=== PATIENT | male | born 1990 | race Caucasian/White ===

== ENCOUNTER 2020-05-30 21:48 | Emergency (ER) | payer SELFPAY ==
--- NOTE | 2020-05-30 22:20 | RAD ---
Exam:Right hand 3 views HISTORY: Thumb swelling, x4 days. Swelling is spreading to the wrist and second digit. COMPARISON: None FINDINGS: Soft tissue swelling involving the first and second digit. No erosive or destructive change s. No radiopaque foreign bodies. No fracture. IMPRESSION: Soft tissue swelling. Correlate for cellulitis.
[2020-05-30] MEDS ORDERED: Ketorolac Tromethamine 30 MG/ML VIAL ONE (23:05)
[2020-05-30] MEDS ORDERED: HYDROcodone/Acetaminophen 5/325 mg Tablet ONE (23:05)
[2020-05-30] MEDS ORDERED: Clindamycin 150 MG CAP ONE (23:07)
== END 2020-05-31 00:04 | disposition home or self-care (01) ==
LOC: ERS 21:48
DX: L08.9 Local infection of the skin and subcutaneous tissue, unspecified (principal); F90.9 Attention-deficit hyperactivity disorder, unspecified type; F17.210 Nicotine dependence, cigarettes, uncomplicated
CPT/HCPCS: J1885

== ENCOUNTER 2020-06-03 18:03 | Inpatient (IN) | payer OTHER, SELFPAY ==
[2020-06-03] MEDS ORDERED: Morphine 4 MG/ML VIAL ONE ×2 (18:41→19:23)
[2020-06-03] MEDS ORDERED: Cefepime 1 GM VIAL ONE (18:42)
[2020-06-03] MEDS ORDERED: Ondansetron PF 4 MG/2 ML Vial ONE (18:42)
[2020-06-03 18:48] LABS: #Basophils 0.1 thou/uL (0.0-0.2); #Eosinphils 0.6 thou/uL (0.0-0.7); #Lymphocytes 1.8 thou/uL (1.20-3.40); #Neutrophils 3.9 thou/uL (1.40-6.50); %Basophils 0.9 % (0.0-1.0); %Eosinophils 7.8 % (0.0-10.0); %Lymphocytes 24.6 % (21.0-51.0); %Neutrophils 52.8 % (42.0-75.0); Hemoglobin 15.6 g/dL (14.0-18.0); Mean Corpuscular HGB CONC 34.1 g/dL (32.0-36.0); Mean Corpuscular Hemoglobin 30.9 pg (27.0-31.0); Mean Corpuscular Volume 90.6 fL (78.0-98.0); Mean Platelet Volume 7.3 fL (7.4-10.4); Platelet Count 284 thou/uL (130-400); RBC Distribution Width 11.7 % (11.5-14.5); Red Blood Cell (RBC) Count 5.04 mill/uL (4.70-6.10); White Blood Cell (WBC) Count 7.4 thou/uL (4.8-10.8)
--- NOTE | 2020-06-03 18:50 | RAD ---
XR Hand Rt 3 View STANDARD History: Cellulitis Comparison: Radiograph May 30, 2020 Findings: Mild soft tissue swelling of the hand. No acute displaced fracture or malalignment. Impression: No acute osseous abnormality.
[2020-06-03 19:07] LABS: ALT (SGPT) 15 U/L (8-55); AST (SGOT) 21 U/L (5-34); Albumin 4.4 g/dL (3.5-5.0); Alkaline Phosphatase 117 U/L (40-110); Anion Gap 12 mmol/L (10-20); BUN (Urea Nitrogen) 14 mg/dL (8.9-20.6); Bilirubin, Total 0.2 mg/dL (0.2-1.2); Calc. Creatinine Clearance 0 mL/min (70-130); Calcium 9.2 mg/dL (7.8-10.44); Carbon Dioxide 25 mmol/L (22-29); Chloride 102 mmol/L (98-107); Estimated GFR-MDRD 90; Globulin 3.1 g/dL (2.4-3.5); Glucose 87 mg/dL (70-105); Potassium 4.4 mmol/L (3.5-5.1); Protein, Total 7.5 g/dL (6.0-8.3); Sodium 135 mmol/L (136-145)
[2020-06-03] MEDS ORDERED: Vancomycin HCl 1.75 GM in Sodium Chloride 0.9% 500 ML IVPB SCH (20:00)
--- NOTE | 2020-06-03 20:18 | PDOC.HHP ---
Hospitalist HPI - History of Present Illness right hand infection History of Present Illness: PCP: None, city call Patient is a 29-year-old male with a history of frequent staph infections. He presents to the ER today for right hand pain and infection. He was seen in the ER 4 days ago for this same infection and the pain started 3 days prior to that with no specific injury or causative event. He has a longstanding history of multiple staph infections which he was required to take Bactrim for daily, he states he has been compliant with this. Patient denies any fever and states that the pain is only in his right thumb and pointer finger and that it goes into his wrist with movement. Patient was prescribed clindamycin 300 mg every 8 hours and tramadol 50 mg for the pain. He states he has been compliant with his medications. ED Course: VITAL SIGNS SatJun 03, 2020 18:04 NORA Miranda Cheryl BP: 140/69, Pulse: 99, Resp: 18, Temp: 97.7 (Oral), Pain: 7, O2 sat: 99 on (Room Air), Time: 06/03/2020 18:04. VITAL SIGNS SatJun 03, 2020 19:30 NORA Elizondo Madison BP: 116/69, Pulse: 76, Resp: 20, Temp: 98.2 (Oral), Pain: 7, O2 sat: 96 on (Room Air), Time: 06/03/2020 19:30. Today in the ER the patient had a hand x-ray, lab work, and medication administration. He was given vancomycin 1800 mg, 2 doses of morphine 4 mg, 1 L normal saline, cefepime 1 g IV, and Zofran [address] Andrea with surgery was also consulted and saw the patient in the ER. Hospitalist ROS - Review of Systems Musculoskeletal: reports: hand pain (Right hand pain and tightness) All other systems reviewed; all pertinent +/- noted in HPI/Subj - Medication Medications: No known drug allergies Current medications: Bactrim 800 mg 3 times a day Hospitalist History - Past Medical History Source: patient Psych: reports: Other (ADHD) Infectious Disease: reports: Other (Frequent staph infections) - Past Surgical History Past Surgical History: reports: Other (Left tib-fib fracture, oleg from hip to knee and knee to ankle) - Social History Smoking Status: Current every day smoker Alcohol: reports: None Drugs: reports: none Living Situation: With Family Hospitalist Results - Labs Result Diagrams: 06/03/20 18:40 06/03/20 18:40 Lab results: WBC 7.4 thou/uL (4.8-10.8) 06/03/20 18:40 Hgb 15.6 g/dL (14.0-18.0) 06/03/20 18:40 Hct 45.7 % (42.0-52.0) 06/03/20 18:40 MCV 90.6 fL (78.0-98.0) 06/03/20 18:40 Plt Count 284 thou/uL (130-400) 06/03/20 18:40 Neutrophils % 52.8 % (42.0-75.0) 06/03/20 18:40 Sodium 135 mmol/L (136-145) L 06/03/20 18:40 Potassium 4.4 mmol/L (3.5-5.1) 06/03/20 18:40 Chloride 102 mmol/L (98-107) 06/03/20 18:40 Carbon Dioxide 25 mmol/L (22-29) 06/03/20 18:40 BUN 14 mg/dL (8.9-20.6) 06/03/20 18:40 Creatinine 0.98 mg/dL (0.7-1.3) 06/03/20 18:40 Glucose 87 mg/dL (70-105) 06/03/20 18:40 Lactic Acid 0.9 mmol/L (0.5-2.2) 06/03/20 18:40 Calcium 9.2 mg/dL (7.8-10.44) 06/03/20 18:40 Total Bilirubin 0.2 mg/dL (0.2-1.2) 06/03/20 18:40 AST 21 U/L (5-34) 06/03/20 18:40 ALT 15 U/L (8-55) 06/03/20 18:40 Alkaline Phosphatase 117 U/L (40-110) H 06/03/20 18:40 Serum Total Protein 7.5 g/dL (6.0-8.3) 06/03/20 18:40 Albumin 4.4 g/dL (3.5-5.0) 06/03/20 18:40 - Radiology Interpretation Other Status: report reviewed by me Additional Comment: XR Hand Rt 3 View STANDARD History: Cellulitis Comparison: Radiograph May 30, 2020 Findings: Mild soft tissue swelling of the hand. No acute displaced fracture or malalignment. Impression: No acute osseous abnormality. Hospitalist H&P A/P - Problem (1) Cellulitis of hand, right Code(s): L03.113 - CELLULITIS OF RIGHT UPPER LIMB Status: Acute (2) Failure of outpatient treatment Code(s): Z78.9 - OTHER SPECIFIED HEALTH STATUS Status: Acute (3) Hyponatremia Code(s): E87.1 - HYPO-OSMOLALITY AND HYPONATREMIA Status: Acute - Plan Plan: Cellulitis of right hand with failed outpatient treatment Orthopedic surgeon has already been consulted and saw patient in the ER, patient may require surgery if no improvement is seen in his hand overnight N.p.o. after midnight Continue IV antibiotics Monitor lab work for signs of infection, currently normal white blood count and normal lactic acid Blood cultures have been sent, pending results Pain management Hyponatremia Monitor lab work in a.m. VTE and GI prophylaxis in place CODE STATUS: Full Surrogate decision maker is his Discussed patient with Dr. Krishnamurthy
[2020-06-03] MEDS ORDERED: Acetaminophen 325 MG TAB PO PRN (21:15)
[2020-06-03 22:23] VITALS: BMI 20.6
[2020-06-03] MEDS ORDERED: HYDROcodone/Acetaminophen 5/325 mg Tablet PO PRN (23:30)
[2020-06-04] MEDS: HYDROcodone/Acetaminophen 5/325 mg Tablet PO PRN ×4 (00:08→21:29)
[2020-06-04] MEDS: Ampicillin/Sulbactam 3 GM in Sodium Chloride 0.9% 100 ML IVPB SCH ×4 (00:09→18:12)
[2020-06-04 05:33] LABS: #Eosinphils 0.6 thou/uL (0.0-0.7); #Lymphocytes 1.5 thou/uL (1.20-3.40); #Monocytes 0.9 thou/uL (0.11-0.59); #Neutrophils 3.3 thou/uL (1.40-6.50); %Basophils 0.7 % (0.0-1.0); %Eosinophils 8.9 % (0.0-10.0); %Lymphocytes 24.1 % (21.0-51.0); %Monocytes 13.6 % (0.0-10.0); %Neutrophils 52.6 % (42.0-75.0); Hemoglobin 14.2 g/dL (14.0-18.0); Mean Corpuscular HGB CONC 33.7 g/dL (32.0-36.0); Mean Corpuscular Volume 91.9 fL (78.0-98.0); Mean Platelet Volume 7.3 fL (7.4-10.4); Platelet Count 245 thou/uL (130-400); RBC Distribution Width 11.6 % (11.5-14.5); White Blood Cell (WBC) Count 6.3 thou/uL (4.8-10.8)
[2020-06-04 05:53] LABS: Anion Gap 14 mmol/L (10-20); BUN (Urea Nitrogen) 15 mg/dL (8.9-20.6); Calc. Creatinine Clearance 123 mL/min (70-130); Calcium 8.8 mg/dL (7.8-10.44); Carbon Dioxide 27 mmol/L (22-29); Chloride 103 mmol/L (98-107); Estimated GFR-MDRD Greater than 90; Glucose 90 mg/dL (70-105); Potassium 4.5 mmol/L (3.5-5.1); Sodium 139 mmol/L (136-145)
[2020-06-04] MEDS ORDERED: FLU VACC QS2020-21(6MOS UP)/PF 60 MCG/0.5 ML SYRINGE IM ONE (09:00)
[2020-06-04] MEDS: Vancomycin HCl 1.75 GM in Sodium Chloride 0.9% 500 ML IVPB SCH ×2 (09:30→21:28)
[2020-06-04] MEDS: Morphine 4 MG/ML VIAL SLOW IVP PRN ×2 (09:32→22:25)
--- NOTE | 2020-06-04 11:55 | CON ---
DATE OF CONSULTATION: 06/04/2020 HISTORY OF PRESENT ILLNESS: Mr. Melton is a 29-year-old left-handed male who presented with pain, swelling, and erythema in the right hand, particularly the thumb. The patient was seen in the emergency room 4 days ago where he had the infection, was started on clindamycin. The patient normally takes Bactrim everyday for multiple staph infections. The patient does not remember any history of trauma or any type of puncture wound to the right thumb or hand. I saw the patient in the emergency room last night and he was very tender to palpation, but was able to move the thumb. Some of the erythema was also on the palmar aspect of the hand going toward the index finger. The patient was admitted and started on IV antibiotics including vancomycin. He states that he is feeling better this morning. The patient has been afebrile since he has been in the hospital. PHYSICAL EXAMINATION: Right hand shows that the erythema, swelling, and tenderness have all decreased in the right thumb. The patient is able to actively flex and extend at the MP and IP joints. There is no significant erythema into the palm of the hand. He has good range of motion of all the other digits. IMPRESSION: Cellulitis of the right thumb showing good response to IV antibiotics. I do not see any indication of flexor tenosynovitis or abscess formation. PLAN: The patient should continue with IV antibiotics. At this point, surgical intervention is not indicated. I recommend he continue with IV antibiotics and see if he does respond well with that. Job ID: [id number]
[2020-06-04 15:25] LABS: SARS-CoV-2 MS2 Positive; SARS-CoV-2 N Gene Negative; SARS-CoV-2 S Gene Negative; SARS-CoV-2 by NAA Not Detected (NotDetected); SARS-CoV-2 orf1ab Negative
[2020-06-04] MEDS ORDERED: cefTRIAXone\\ROCEPHIN 1 GM in Sodium Chloride 0.9% 100 ML IVPB SCH (17:00)
--- NOTE | 2020-06-04 18:09 | PDOC.HOSPP ---
- Subjective Encounter Date: 06/04/20 Encounter Time: 14:00 Subjective: The patient reports improvement in his swelling of his thumb and is able to move it more, but it is still moderately painful. He denies jamming his thumb against any thing that he recalls. He states his daughter had a staph infection in her diaper, but washed his hands after cleaning her. He denies any cuts in his thumb. 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 He states that he was taking it prior to admission, is supposed to take it three times daily but is not compliant with his dosing - Objective Vital Signs & Weight: Vital Signs (12 hours) Temp Pulse Resp BP BP Pulse Ox 06/04/20 15:12 98 F 64 18 102/62 99 06/04/20 10:44 97.8 F 74 18 100/59 L 97 06/04/20 07:23 98 F 68 16 93/53 L 98 Weight Weight 165 lb I&O: 06/03/20 06/04/20 06/05/20 06:59 06:59 06:59 Intake Total 700 Balance 700 Result Diagrams: 06/04/20 05:05 06/04/20 05:05 Hospitalist ROS - Review of Systems Constitutional: denies: fever, chills - Medication Medications: Active Medications Generic Name Dose Route Start Last Admin Trade Name Freq PRN Reason Stop Dose Admin Hydrocodone Bitart/Acetaminophen 2 tab 06/03/20 23:30 06/04/20 15:58 Hydrocodone/Acetaminophen 5/325 Mg Tablet PO 2 tab Q4H PRN Administration Severe Pain (7-10) Vancomycin HCl 1.75 gm/ Sodium 500 mls @ 250 mls/hr 06/04/20 09:00 06/04/20 09:30 Chloride IVPB 500 mls Q12HR TAVO Administration Ampicillin Sodium/Sulbactam 100 mls @ 200 mls/hr 06/03/20 23:59 06/04/20 14:32 Sodium 3 gm/ Sodium Chloride IVPB 100 mls Q6HR TAVO Administration Morphine Sulfate 4 mg 06/03/20 21:15 06/04/20 09:32 Morphine 4 Mg/Ml Vial SLOW IVP 4 mg Q4H PRN Administration Moderate to Severe Pain (6-10) Pantoprazole Sodium 40 mg 06/04/20 09:00 06/04/20 09:29 Pantoprazole 40 Mg Tab PO Not Given DAILY TAVO - Exam General Appearance: NAD, awake alert Eye: PERRL, anicteric sclera ENT: normocephalic atraumatic, no oropharyngeal lesions Neck: no JVD Heart: RRR, no murmur, no gallops, no rubs Respiratory: CTAB, no wheezes, no rales, no ronchi Gastrointestinal: soft, non-tender, non-distended, normal bowel sounds Extremities: 2+ LE edema Extremities - other findings: right thumb with swelling on DIP and PIP joint. Tenderness to palpation. Skin - other findings: no erythema noed Musculoskeletal: no muscle wasting Musculoskeletal - other findings: cannot make fist or touch thumb to pinky Psychiatric: normal behavior, A&O x 3, oriented to person Hosp A/P - Plan This is a 29 year old male who presented with right thumb cellulitis Right thumb cellulitis - blood cultures are negative. Continue IV vancomycin and unasyn. No fevers or white blood cell count evident - ortho saw the patient and recommended no surgical intervention
[2020-06-05] MEDS: Ampicillin/Sulbactam 3 GM in Sodium Chloride 0.9% 100 ML IVPB SCH ×2 (00:12→06:09)
[2020-06-05] MEDS: Morphine 4 MG/ML VIAL SLOW IVP PRN ×2 (03:39→08:49)
[2020-06-05 05:21] LABS: #Basophils 0.1 thou/uL (0.0-0.2); #Eosinphils 0.5 thou/uL (0.0-0.7); #Lymphocytes 1.8 thou/uL (1.20-3.40); #Monocytes 0.8 thou/uL (0.11-0.59); #Neutrophils 3.7 thou/uL (1.40-6.50); %Basophils 1.2 % (0.0-1.0); %Eosinophils 7.7 % (0.0-10.0); %Lymphocytes 25.4 % (21.0-51.0); %Neutrophils 53.7 % (42.0-75.0); Hemoglobin 13.7 g/dL (14.0-18.0); Mean Corpuscular HGB CONC 32.8 g/dL (32.0-36.0); Mean Corpuscular Hemoglobin 30.3 pg (27.0-31.0); Mean Corpuscular Volume 92.4 fL (78.0-98.0); Mean Platelet Volume 7.5 fL (7.4-10.4); Platelet Count 250 thou/uL (130-400); RBC Distribution Width 11.5 % (11.5-14.5); Red Blood Cell (RBC) Count 4.51 mill/uL (4.70-6.10)
[2020-06-05 05:40] LABS: Anion Gap 10 mmol/L (10-20); BUN (Urea Nitrogen) 14 mg/dL (8.9-20.6); Calc. Creatinine Clearance 138 mL/min (70-130); Calcium 8.7 mg/dL (7.8-10.44); Carbon Dioxide 29 mmol/L (22-29); Chloride 101 mmol/L (98-107); Estimated GFR-MDRD Greater than 90; Glucose 90 mg/dL (70-105); Potassium 4.4 mmol/L (3.5-5.1); Sodium 136 mmol/L (136-145)
[2020-06-05] MEDS: HYDROcodone/Acetaminophen 5/325 mg Tablet PO PRN (06:03)
[2020-06-05 07:06] VITALS: BP 110/66; TEMP 98.3
[2020-06-05] MEDS: Vancomycin HCl 1.75 GM in Sodium Chloride 0.9% 500 ML IVPB SCH (08:47)
--- NOTE | 2020-06-06 03:00 | DIS ---
DATE OF ADMISSION: 06/03/2020 DATE OF DISCHARGE: 06/05/2020 DISCHARGE DISPOSITION: The patient left against medical advice prior to being seen on the day of discharge. DISCHARGE DIAGNOSES: 1. Acute cellulitis of the right thumb. 2. Anemia. 3. Elevated alkaline phosphatase. CONSULTATIONS: Orthopedics with Dr. Roger Gomez. PROCEDURES: None. BRIEF HISTORY OF PRESENT ILLNESS: This is a 29-year-old male with no significant past medical history, presented to the emergency room with a right hand pain infection. He stated that he has had multiple staph infections and he takes Bactrim daily for chronic infections in his legs, for which he has had over 31 surgeries. 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 He stated that he did not jam his finger against anything, but was unable to move his right thumb and pointer finger. He had taken clindamycin prior to arrival to the ER. He was admitted to the hospital for failed outpatient treatment. HOSPITAL COURSE: Right thumb cellulitis: The patient had hand x-ray, which showed mild soft tissue swelling of the hand. He was started on IV vancomycin and Unasyn while in the hospital. His thumb tenderness and erythema significantly improved. He was seen by Dr. Gomez, who recommended no surgical intervention. He was continued on IV antibiotics on 06/04. On 06/05, the patient left AMA prior to me seeing the patient. The patient did not answer his cellphone when contacted and his significant other did not know his whereabouts. Per nursing staff, police was called to do wellness check. DISCHARGE PHYSICAL EXAMINATION: ' VITAL SIGNS: At 7 a.m.; temperature 98.3, heart rate 69, respiratory rate 14, O2 saturation 97% on room air, and blood pressure 110/66. Physical exam, I was unable to examine the patient since he left prior to discharge. PERTINENT LABORATORY DATA: CBC 06/05: Shows mild anemia, hemoglobin 13.7 and hematocrit 41.7. BMP 06/05: Normal. LFTs 06/03: Elevated alkaline phosphatase 117. COVID PCR 06/03: Negative. PERTINENT IMAGING: Hand x-ray 05/28: Shows no acute osseous abnormality. DISCHARGE CONDITION: Stable. ACTIVITY: As tolerated. DIET: Regular diet. DISPOSITION: Patient left AMA. DISCHARGE MEDICATIONS: Unable to prescribe since the patient left AMA. DISCHARGE INSTRUCTIONS: The patient to follow up with his PCP in a week and going back to the emergency room if he has recurrent swelling or erythema of his thumb. Job ID: [id number] MTDD
--- NOTE | 2020-06-06 17:36 | EKG ---
Test Reason : Blood Pressure : / mmHG Vent. Rate : 073 BPM Atrial Rate : 073 BPM P-R Int : 132 ms QRS Dur : 106 ms QT Int : 370 ms P-R-T Axes : 064 087 058 degrees QTc Int : 407 ms Normal sinus rhythm Normal ECG No previous ECGs available Confirmed by DR. Kendra MANTILLA ([id number]) on 06/06/2020 5:36:27 PM Referred By: RAYMOND Confirmed By:DR. Kendra MANTILLA
== END 2020-06-05 12:19 | disposition left against medical advice (07) | DRG 603 ==
LOC: ERS 18:03 → SJJU 20:13
PROVIDERS: ADMIT Internal Medicine; ATTEND Internal Medicine
DX: L03.011 Cellulitis of right finger (principal); E87.1 Hypo-osmolality and hyponatremia; Z20.828 Contact with and (suspected) exposure to other viral communicable diseases; D64.9 Anemia, unspecified; R79.89 Other specified abnormal findings of blood chemistry; F90.9 Attention-deficit hyperactivity disorder, unspecified type; F17.210 Nicotine dependence, cigarettes, uncomplicated; Z79.899 Other long term (current) drug therapy
CPT/HCPCS: 36415; 80048; 80053; 83605; 85025; 87040; 87635; 93005; 93010; 96365; 96367; 96375; 96376; J0295; J0692; J0696; J2270; J2405; J3370; J3490; J7030; U0003

== ENCOUNTER 2020-06-05 16:41 | Emergency (ER) | payer SELFPAY | END 2020-06-05 17:21 | disposition left against medical advice (07) | LOC: ERS 16:41 | DX: Z53.21 Procedure and treatment not carried out due to patient leaving prior to being seen by health care provider (principal) ==

== ENCOUNTER 2021-10-04 19:50 | Emergency (ER) | payer SELFPAY ==
[2021-10-04 20:50] LABS: #Eosinphils 0.1 thou/uL (0.0-0.7); #Lymphocytes 1.1 thou/uL (1.20-3.40); #Monocytes 1.4 thou/uL (0.11-0.59); %Basophils 0.4 % (0.0-1.0); %Eosinophils 0.5 % (0.0-10.0); %Lymphocytes 9.1 % (21.0-51.0); %Monocytes 12.3 % (0.0-10.0); %Neutrophils 77.7 % (42.0-75.0); Hemoglobin 13.2 g/dL (14.0-18.0); Mean Corpuscular HGB CONC 33.3 g/dL (32.0-36.0); Mean Corpuscular Hemoglobin 30.2 pg (27.0-31.0); Mean Corpuscular Volume 90.7 fL (78.0-98.0); Mean Platelet Volume 6.3 fL (7.4-10.4); Platelet Count 304 thou/uL (130-400); RBC Distribution Width 11.7 % (11.5-14.5); Red Blood Cell (RBC) Count 4.36 mill/uL (4.70-6.10); White Blood Cell (WBC) Count 11.6 thou/uL (4.8-10.8)
[2021-10-04 21:12] LABS: ALT (SGPT) 30 U/L (8-55); AST (SGOT) 24 U/L (5-34); Albumin 3.8 g/dL (3.5-5.0); Alkaline Phosphatase 113 U/L (40-110); Anion Gap 12 mmol/L (10-20); BUN (Urea Nitrogen) 12 mg/dL (8.9-20.6); Bilirubin, Total 0.3 mg/dL (0.2-1.2); Calc. Creatinine Clearance 0 mL/min (70-130); Calcium 8.9 mg/dL (7.8-10.44); Carbon Dioxide 26 mmol/L (22-29); Chloride 99 mmol/L (98-107); Globulin 3.5 g/dL (2.4-3.5); Glucose 126 mg/dL (70-105); Protein, Total 7.3 g/dL (6.0-8.3); Sodium 133 mmol/L (136-145)
[2021-10-04] MEDS ORDERED: Morphine 4 MG/ML VIAL ONE (22:09)
== END 2021-10-04 23:45 | disposition home or self-care (01) ==
LOC: ERS 19:50
DX: L03.116 Cellulitis of left lower limb (principal); F17.210 Nicotine dependence, cigarettes, uncomplicated
CPT/HCPCS: 36415; 80053; 83605; 85025; 87040; 93005; 96374; J2270

== ENCOUNTER 2022-03-02 00:20 | Observation (INO) | payer SELFPAY ==
[2022-03-02] MEDS ORDERED: Lidocaine 1% PF 5 ML VIAL ONE ×2 (00:28→06:09)
[2022-03-02] MEDS ORDERED: Bupivacaine 0.25% 10 ML VIAL ONE (00:30)
[2022-03-02] MEDS ORDERED: Ondansetron PF 4 MG/2 ML Vial ONE ×2 (02:14→06:09)
[2022-03-02] MEDS ORDERED: Boostrix 0.5 ML (Tdap) VIAL ONE (02:14)
[2022-03-02] MEDS ORDERED: Morphine 4 MG/ML VIAL ONE (02:14)
[2022-03-02 02:29] LABS: #Eosinphils 0.1 thou/uL (0.0-0.7); #Lymphocytes 1.2 thou/uL (1.20-3.40); #Neutrophils 5.6 thou/uL (1.40-6.50); %Basophils 0.4 % (0.0-1.0); %Eosinophils 1.7 % (0.0-10.0); %Lymphocytes 14.6 % (21.0-51.0); %Monocytes 12.4 % (0.0-10.0); %Neutrophils 70.8 % (42.0-75.0); Hemoglobin 12.3 g/dL (14.0-18.0); Mean Corpuscular HGB CONC 32.4 g/dL (32.0-36.0); Mean Corpuscular Hemoglobin 29.6 pg (27.0-31.0); Mean Corpuscular Volume 91.5 fL (78.0-98.0); Mean Platelet Volume 6.7 fL (7.4-10.4); Platelet Count 307 thou/uL (130-400); RBC Distribution Width 13.2 % (11.5-14.5); Red Blood Cell (RBC) Count 4.15 mill/uL (4.70-6.10); White Blood Cell (WBC) Count 7.9 thou/uL (4.8-10.8)
[2022-03-02 02:48] LABS: Anion Gap 12 mmol/L (10-20); BUN (Urea Nitrogen) 15 mg/dL (8.9-20.6); Calc. Creatinine Clearance 0 mL/min (70-130); Carbon Dioxide 28 mmol/L (22-29); Chloride 104 mmol/L (98-107); Potassium 3.3 mmol/L (3.5-5.1); Sodium 141 mmol/L (136-145)
[2022-03-02 02:49] LABS: ALT (SGPT) 14 U/L (8-55); AST (SGOT) 13 U/L (5-34); Albumin 3.9 g/dL (3.5-5.0); Alkaline Phosphatase 120 U/L (40-110); Bilirubin, Total Less than 0.2 mg/dL (0.2-1.2); Calcium 9.2 mg/dL (7.8-10.44); Estimated GFR 117; Globulin 3.3 g/dL (2.4-3.5); Glucose 116 mg/dL (70-105); Protein, Total 7.2 g/dL (6.0-8.3)
[2022-03-02] MEDS ORDERED: Neomycin-Polymyxin 1 ML AMP ONE (04:49)
[2022-03-02] MEDS ORDERED: Bupivacaine PF 0.5% 30 ML VIAL ONE (04:49)
[2022-03-02] MEDS ORDERED: Bacitracin Zinc Ointment 30 gm TUBE ONE ×2 (04:49→06:39)
[2022-03-02] MEDS ORDERED: Thrombin 5000 UNITS/5 ML VIAL ONE (04:49)
[2022-03-02] MEDS ORDERED: Bupivacaine 0.25% HCL 30 ML VIAL ONE (04:49)
[2022-03-02 05:37] LABS: SARS-CoV-2 NAA Rapid Test Not Detected (NotDetected)
[2022-03-02] MEDS ORDERED: CEFAZOLIN 1 GM VIAL ONE (05:48)
[2022-03-02] MEDS ORDERED: fentaNYL Citrate/PF 100 MCG/2 ML SYRINGE ONE (05:54)
[2022-03-02] MEDS ORDERED: Midazolam HCl 2 mg/2 ml Vial ONE (05:54)
[2022-03-02] MEDS ORDERED: Glycopyrrolate 0.2 MG/ML 5 ML SYRINGE ONE (06:09)
[2022-03-02] MEDS ORDERED: Succinylcholine 200 MG/10 ml SYRINGE FS ONE (06:09)
[2022-03-02] MEDS ORDERED: Dexamethasone 20 MG/5 ML VIAL ONE (06:09)
[2022-03-02] MEDS ORDERED: PROPOFOL 200 MG/20 ML VIAL ONE (06:09)
[2022-03-02] MEDS ORDERED: Mineral Oil Sterile 10 ML VIAL ONE (06:39)
[2022-03-02] MEDS ORDERED: Promethazine HCl 25 MG/ML VIAL IVPB PRN (07:58)
[2022-03-02] MEDS ORDERED: Promethazine HCl 25 MG/ML VIAL IM PRN ×2 (07:58→08:22)
[2022-03-02] MEDS ORDERED: Ondansetron HCl/PF 4 MG/2 ML Vial IVP PRN (07:58)
[2022-03-02] MEDS ORDERED: Ketorolac Tromethamine 30 MG/ML VIAL ONE (08:22)
[2022-03-02] MEDS ORDERED: Fentanyl 100 MCG/2 ML VIAL SLOW IVP PRN (08:22)
[2022-03-02] MEDS ORDERED: Ondansetron PF 4 MG/2 ML Vial IVP PRN (08:22)
[2022-03-02] MEDS ORDERED: Morphine 4 MG/ML VIAL SLOW IVP PRN (08:22)
[2022-03-02] MEDS ORDERED: Acetaminophen 325 MG TAB PO PRN (08:22)
[2022-03-02] MEDS ORDERED: traMADol HCl 50 MG TAB PO PRN (08:22)
[2022-03-02] MEDS ORDERED: Milk Of Magnesia 30 ML UDCUP PO PRN (08:22)
[2022-03-02] MEDS ORDERED: TETANUS AND DIPHTHERIA TOX/PF 0.5 ML DISP.SYRIN IM SCH (08:30)
[2022-03-02] MEDS ORDERED: Fentanyl 100 MCG/2 ML VIAL ONE (08:40)
[2022-03-02] MEDS: Aspirin 81 mg Enteric Coated Tablet PO SCH ×2 (09:00→20:20)
[2022-03-02] MEDS: Ketorolac Tromethamine 30 MG/ML VIAL IVP PRN (17:29)
[2022-03-02] MEDS: HYDROcodone/Acetaminophen 5/325 mg Tablet PO PRN ×2 (17:30→21:05)
[2022-03-02] MEDS ORDERED: Vancomycin 1.5 GRAM/300 ML BAG 1.5 GM in Premix Bag 1 BAG IVPB SCH (22:15)
[2022-03-03] MEDS: HYDROcodone/Acetaminophen 5/325 mg Tablet PO PRN (02:06)
[2022-03-03] MEDS: Ketorolac Tromethamine 30 MG/ML VIAL IVP PRN (02:25)
[2022-03-03] MEDS: Vancomycin 1 GM in Premix Bag 1 BAG IVPB SCH ×2 (06:19→15:44)
[2022-03-03] MEDS: Aspirin 81 mg Enteric Coated Tablet PO SCH (08:42)
[2022-03-03] MEDS ORDERED: Acetaminophen 325 MG TAB PO PRN (14:46)
[2022-03-03] MEDS ORDERED: Fentanyl 100 MCG/2 ML VIAL SLOW IVP PRN (14:47)
[2022-03-03] MEDS ORDERED: Ketorolac Tromethamine 30 MG/ML VIAL IVP PRN (14:47)
[2022-03-03] MEDS ORDERED: HYDROcodone/Acetaminophen 5/325 mg Tablet PO PRN (14:47)
[2022-03-03] MEDS ORDERED: Milk Of Magnesia 30 ML UDCUP PO PRN (14:48)
[2022-03-03] MEDS ORDERED: Morphine 4 MG/ML VIAL SLOW IVP PRN (14:48)
[2022-03-03] MEDS ORDERED: Ondansetron PF 4 MG/2 ML Vial IVP PRN (14:48)
[2022-03-03] MEDS ORDERED: traMADol HCl 50 MG TAB PO PRN (14:49)
[2022-03-03] MEDS ORDERED: Promethazine HCl 25 MG/ML VIAL IM PRN (14:49)
[2022-03-03 15:59] VITALS: BP 112/68; TEMP 97.9
[2022-03-03] MEDS ORDERED: Aspirin 81 mg Enteric Coated Tablet PO SCH (21:00)
[2022-03-03] MEDS ORDERED: Vancomycin 1 GM in Premix Bag 1 BAG IVPB SCH (22:00)
[2022-03-03] MEDS ORDERED: CEFAZOLIN 2 GM VIAL IVPB SCH (22:00)
[2022-03-03] MEDS ORDERED: CEFAZOLIN 1 GM in Sodium Chloride 0.9% 100 ML IVPB SCH (22:00)
== END 2022-03-03 17:49 | disposition home or self-care (01) ==
LOC: ERS 00:20 → SURG A 08:02 → UNDODISOB 03-03 13:52
PROVIDERS: ADMIT Orthopaedic Surgery Hand Surgery; ATTEND Orthopaedic Surgery Hand Surgery
PROC: 0HDQXZZ Extraction of Finger Nail, External Approach (ICD-10-PCS; principal; 2022-03-02)
PROC: 0HQQXZZ Repair Finger Nail, External Approach (ICD-10-PCS; 2022-03-02)
PROC: 0HRGX73 Replacement of Left Hand Skin with Autologous Tissue Substitute, Full Thickness, External Approach (ICD-10-PCS; 2022-03-02)
PROC: 0PBV0ZZ Excision of Left Finger Phalanx, Open Approach (ICD-10-PCS; 2022-03-02)
PROC: 0PBV0ZZ Excision of Left Finger Phalanx, Open Approach (ICD-10-PCS; 2022-03-02)
DX: S68.611A Complete traumatic transphalangeal amputation of left index finger, initial encounter (principal); S68.613A Complete traumatic transphalangeal amputation of left middle finger, initial encounter; F17.210 Nicotine dependence, cigarettes, uncomplicated; Z79.2 Long term (current) use of antibiotics; Z20.822 Contact with and (suspected) exposure to COVID-19; W24.1XXA Contact with transmission devices, not elsewhere classified, initial encounter
CPT/HCPCS: 36415; 80053; 85025; 90471; 90715; 96374; 96375; 96376; G0378; J0690; J1100; J1885; J2250; J2270; J2405; J2550; J2704; J2710; J3010; J3370; S0020; U0002

== ENCOUNTER 2022-07-21 11:43 | Inpatient (IN) | payer SELFPAY ==
[2022-07-21] MEDS ORDERED: Morphine 4 MG/ML VIAL ONE ×2 (12:15→13:10)
[2022-07-21 12:20] LABS: #Basophils 0.1 thou/uL (0.0-0.2); #Eosinphils 0.2 thou/uL (0.0-0.7); #Lymphocytes 1.3 thou/uL (1.20-3.40); #Monocytes 1.3 thou/uL (0.11-0.59); %Basophils 0.5 % (0.0-1.0); %Eosinophils 2.1 % (0.0-10.0); %Lymphocytes 12.7 % (21.0-51.0); %Monocytes 12.8 % (0.0-10.0); %Neutrophils 71.9 % (42.0-75.0); Hemoglobin 13.1 g/dL (14.0-18.0); Mean Corpuscular Hemoglobin 29.7 pg (27.0-31.0); Mean Corpuscular Volume 92.7 fl (78.0-98.0); Mean Platelet Volume 7.1 fL (7.4-10.4); Platelet Count 265 10x3/uL (130-400); RBC Distribution Width 12.6 % (11.5-14.5); Red Blood Cell (RBC) Count 4.42 mill/uL (4.70-6.10); White Blood Cell (WBC) Count 9.8 10x3/uL (4.8-10.8)
[2022-07-21 12:41] LABS: ALT (SGPT) 20 U/L (8-55); AST (SGOT) 18 U/L (5-34); Albumin 4.2 g/dL (3.5-5.0); Alkaline Phosphatase 121 U/L (40-110); Anion Gap 11 mmol/L (10-20); BUN (Urea Nitrogen) 21 mg/dL (8.9-20.6); Bilirubin, Total 0.5 mg/dL (0.2-1.2); Calc. Creatinine Clearance 0 mL/min (70-130); Carbon Dioxide 28 mmol/L (22-29); Chloride 103 mmol/L (98-107); Estimated GFR 110; Globulin 3.3 g/dL (2.4-3.5); Glucose 87 mg/dL (70-105); Potassium 3.8 mmol/L (3.5-5.1); Protein, Total 7.5 g/dL (6.0-8.3); Sodium 138 mmol/L (136-145)
[2022-07-21] MEDS ORDERED: Cefepime 2 GM VIAL ONE (14:02)
[2022-07-21] MEDS ORDERED: Vancomycin 1 GM/200 ML (FROZEN) BAG ONE (14:02)
[2022-07-21] MEDS ORDERED: Ondansetron ODT 4 MG TAB PO PRN (14:24)
[2022-07-21] MEDS ORDERED: Senokot S 8.6-50 MG TAB PO PRN (14:24)
[2022-07-21] MEDS: Sodium Chloride 0.9% 1,000 ML IV SCH (15:39)
[2022-07-21] MEDS: Morphine 4 MG/ML VIAL SLOW IVP PRN ×2 (15:44→20:13)
[2022-07-21 15:50] VITALS: BMI 21.2
[2022-07-21] MEDS: Nicotine 14 MG PATCH TD SCH (16:11)
[2022-07-21] MEDS ORDERED: Vancomycin HCl 500 MG in Sodium Chloride 0.9% 100 ML IVPB SCH (16:15)
[2022-07-21] MEDS ORDERED: Cefepime 1 GM in Sodium Chloride 0.9% 100 ML IVPB SCH (21:00)
[2022-07-21] MEDS: Famotidine 20 MG TAB PO SCH (21:15)
[2022-07-21] MEDS: Vancomycin 1 GM in Premix Bag 1 BAG IVPB SCH (21:18)
[2022-07-21] MEDS ORDERED: Morphine 4 MG/ML VIAL SLOW IVP SCH (22:45)
[2022-07-22] MEDS: Morphine 4 MG/ML VIAL SLOW IVP PRN (00:55)
[2022-07-22] MEDS: Sodium Chloride 0.9% 1,000 ML IV SCH ×2 (00:56→12:31)
[2022-07-22] MEDS: Cefepime 2 GM in Sodium Chloride 0.9% 100 ML IVPB SCH ×2 (02:50→14:03)
[2022-07-22] MEDS: HYDROcodone/Acetaminophen 10/325 mg Tablet PO PRN ×3 (03:33→21:37)
[2022-07-22] MEDS: Acetaminophen 325 MG TAB PO PRN ×2 (03:34→17:01)
[2022-07-22] MEDS: Vancomycin 1 GM in Premix Bag 1 BAG IVPB SCH (05:47)
[2022-07-22 07:56] LABS: #Basophils 0.1 thou/uL (0.0-0.2); #Eosinphils 0.1 thou/uL (0.0-0.7); #Lymphocytes 1.2 thou/uL (1.20-3.40); #Monocytes 1.7 thou/uL (0.11-0.59); #Neutrophils 8.5 thou/uL (1.40-6.50); %Basophils 0.5 % (0.0-1.0); %Eosinophils 0.5 % (0.0-10.0); %Lymphocytes 10.3 % (21.0-51.0); %Monocytes 14.7 % (0.0-10.0); Hemoglobin 12.9 g/dL (14.0-18.0); Mean Corpuscular HGB CONC 31.3 g/dL (32.0-36.0); Mean Corpuscular Hemoglobin 29.4 pg (27.0-31.0); Mean Platelet Volume 7.2 fL (7.4-10.4); Platelet Count 224 10x3/uL (130-400); RBC Distribution Width 12.2 % (11.5-14.5); Red Blood Cell (RBC) Count 4.39 mill/uL (4.70-6.10); White Blood Cell (WBC) Count 11.5 10x3/uL (4.8-10.8)
[2022-07-22 08:18] LABS: Anion Gap 14 mmol/L (10-20); BUN (Urea Nitrogen) 11 mg/dL (8.9-20.6); Calc. Creatinine Clearance 163 mL/min (70-130); Calcium 8.7 mg/dL (7.8-10.44); Carbon Dioxide 22 mmol/L (22-29); Chloride 100 mmol/L (98-107); Estimated GFR 126; Glucose 82 mg/dL (70-105); Potassium 3.7 mmol/L (3.5-5.1); Sodium 132 mmol/L (136-145)
[2022-07-22] MEDS ORDERED: FLU VACC QS2022-23(6MOS UP)/PF 60 MCG/0.5 ML SYRINGE IM ONE (09:00)
[2022-07-22] MEDS: Famotidine 20 MG TAB PO SCH ×2 (09:19→21:23)
[2022-07-22 13:35] LABS: Vancomycin, Trough 9.4 ug/mL
[2022-07-22] MEDS: Vancomycin 1.5 GRAM/300 ML BAG 1.5 GM in Premix Bag 1 BAG IVPB SCH ×2 (14:03→21:21)
[2022-07-22] MEDS: metroNIDAZOLE 500 MG in Premix Bag 1 BAG IVPB SCH ×2 (15:12→22:12)
[2022-07-22] MEDS: Nicotine 14 MG PATCH TD SCH (15:15)
[2022-07-23] MEDS: Cefepime 2 GM in Sodium Chloride 0.9% 100 ML IVPB SCH (01:17)
[2022-07-23] MEDS: HYDROcodone/Acetaminophen 10/325 mg Tablet PO PRN ×5 (01:59→23:14)
[2022-07-23] MEDS: Vancomycin 1.5 GRAM/300 ML BAG 1.5 GM in Premix Bag 1 BAG IVPB SCH ×3 (05:48→21:01)
[2022-07-23] MEDS: metroNIDAZOLE 500 MG in Premix Bag 1 BAG IVPB SCH (05:48)
[2022-07-23] MEDS: Acetaminophen 325 MG TAB PO PRN (05:58)
[2022-07-23 06:57] LABS: Hemoglobin 12.1 g/dL (14.0-18.0); Mean Corpuscular HGB CONC 32.4 g/dL (32.0-36.0); Mean Corpuscular Hemoglobin 29.7 pg (27.0-31.0); Mean Corpuscular Volume 91.7 fl (78.0-98.0); Mean Platelet Volume 6.9 fL (7.4-10.4); Platelet Count 212 10x3/uL (130-400); Red Blood Cell (RBC) Count 4.08 mill/uL (4.70-6.10)
[2022-07-23 07:29] LABS: Anion Gap 10 mmol/L (10-20); BUN (Urea Nitrogen) 9 mg/dL (8.9-20.6); Calc. Creatinine Clearance 152 mL/min (70-130); Carbon Dioxide 26 mmol/L (22-29); Chloride 100 mmol/L (98-107); Estimated GFR 123; Glucose 137 mg/dL (70-105); Potassium 3.5 mmol/L (3.5-5.1); Sodium 132 mmol/L (136-145)
[2022-07-23 08:13] LABS: Band 2 % (5-11); Eosinophils 1 % (0-10); Lymphocytes 15 % (21-51); MDiff Complete? YES; Monocytes 10 % (0-10); Neutrophil 70 % (42-75); Platelet Morphology Comment Appears Adequate; Polychromasia SLIGHT = 2-3 cells (100X) (0-2/hpf); Reactive Lymphocytes 2 % (0-10)
[2022-07-23] MEDS: Famotidine 20 MG TAB PO SCH ×2 (11:06→21:01)
[2022-07-23] MEDS: Enoxaparin Sodium 40 MG/0.4 ML SYRINGE SC SCH (11:09)
[2022-07-23 13:32] LABS: Vancomycin, Trough 15.4 ug/mL
[2022-07-23] MEDS: Nicotine 14 MG PATCH TD SCH (14:07)
[2022-07-23] MEDS: Morphine 4 MG/ML VIAL SLOW IVP PRN (21:09)
[2022-07-24 00:56] LABS: SARS-CoV-2 NAA Rapid Test Not Detected (NotDetected)
[2022-07-24] MEDS: Acetaminophen 325 MG TAB PO PRN (01:35)
[2022-07-24] MEDS: HYDROcodone/Acetaminophen 10/325 mg Tablet PO PRN ×3 (03:02→21:01)
[2022-07-24] MEDS: Morphine 4 MG/ML VIAL SLOW IVP PRN ×3 (04:47→22:18)
[2022-07-24] MEDS: Vancomycin 1.5 GRAM/300 ML BAG 1.5 GM in Premix Bag 1 BAG IVPB SCH ×2 (04:59→16:32)
[2022-07-24 07:25] LABS: Hemoglobin 11.9 g/dL (14.0-18.0); Mean Corpuscular HGB CONC 32.5 g/dL (32.0-36.0); Mean Corpuscular Hemoglobin 30.4 pg (27.0-31.0); Mean Corpuscular Volume 93.5 fl (78.0-98.0); Mean Platelet Volume 7.1 fL (7.4-10.4); Platelet Count 205 10x3/uL (130-400); RBC Distribution Width 12.2 % (11.5-14.5); Red Blood Cell (RBC) Count 3.92 mill/uL (4.70-6.10); White Blood Cell (WBC) Count 6.8 10x3/uL (4.8-10.8)
[2022-07-24 07:48] LABS: Anion Gap 13 mmol/L (10-20); BUN (Urea Nitrogen) 10 mg/dL (8.9-20.6); Calc. Creatinine Clearance 166 mL/min (70-130); Calcium 8.5 mg/dL (7.8-10.44); Carbon Dioxide 27 mmol/L (22-29); Chloride 100 mmol/L (98-107); Estimated GFR 126; Glucose 102 mg/dL (70-105); Potassium 3.8 mmol/L (3.5-5.1); Sodium 136 mmol/L (136-145)
[2022-07-24] MEDS: Enoxaparin Sodium 40 MG/0.4 ML SYRINGE SC SCH (08:47)
[2022-07-24] MEDS: Famotidine 20 MG TAB PO SCH ×2 (08:49→21:00)
[2022-07-24 09:26] LABS: Eosinophils 1 % (0-10); Lymphocytes 18 % (21-51); MDiff Complete? YES; Monocytes 11 % (0-10); Neutrophil 70 % (42-75); RBC Morphology Normal
[2022-07-24] MEDS ORDERED: Vancomycin (BATCH) 1.5 GRAM/300 ML BAG ONE (13:15)
[2022-07-24 13:58] LABS: Vancomycin, Trough 13.1 ug/mL
[2022-07-24] MEDS ORDERED: Lidocaine 1% (PF) 30 ML VIAL ONE (14:16)
[2022-07-24] MEDS ORDERED: EPINEPHrine 1 MG/ML AMP ONE (14:21)
[2022-07-24] MEDS ORDERED: Bupivacaine/Epinephrine 0.25% 30 ML VIAL ONE (14:21)
[2022-07-24] MEDS ORDERED: fentaNYL PF 100 MCG/2 ML SYRINGE ONE ×2 (14:23→16:58)
[2022-07-24] MEDS ORDERED: PROPOFOL 200 MG/20 ML VIAL ONE (14:37)
[2022-07-24] MEDS ORDERED: Phenylephrine 10 MG/ML VIAL ONE (14:37)
[2022-07-24] MEDS ORDERED: Ondansetron PF 4 MG/2 ML Vial ONE (14:37)
[2022-07-24] MEDS ORDERED: Dexamethasone 20 MG/5 ML VIAL ONE (14:37)
[2022-07-24] MEDS ORDERED: Ketorolac Tromethamine 30 MG/ML VIAL ONE (14:37)
[2022-07-24] MEDS: VANCOMYCIN 1.75 GM/500 ML BAG 1.75 GM in Premix Bag 1 BAG IVPB SCH ×2 (16:32→22:21)
[2022-07-24] MEDS ORDERED: HYDROmorphone 0.5 MG/0.5 ML SYRINGE ONE (17:30)
[2022-07-24] MEDS ORDERED: FENTANYL 50 MCG/ML 1 ML VIAL ONE (18:08)
[2022-07-24] MEDS: Nicotine 14 MG PATCH TD SCH (21:02)
[2022-07-25] MEDS: HYDROcodone/Acetaminophen 10/325 mg Tablet PO PRN ×3 (00:40→15:08)
[2022-07-25] MEDS: Morphine 4 MG/ML VIAL SLOW IVP PRN (04:23)
[2022-07-25 06:33] LABS: #Lymphocytes 0.4 thou/uL (1.20-3.40); #Monocytes 0.9 thou/uL (0.11-0.59); #Neutrophils 7.8 thou/uL (1.40-6.50); %Basophils 0.1 % (0.0-1.0); %Lymphocytes 4.7 % (21.0-51.0); %Monocytes 10.1 % (0.0-10.0); %Neutrophils 85.1 % (42.0-75.0); Mean Corpuscular HGB CONC 32.3 g/dL (32.0-36.0); Mean Corpuscular Hemoglobin 29.8 pg (27.0-31.0); Mean Corpuscular Volume 92.4 fl (78.0-98.0); Platelet Count 272 10x3/uL (130-400); Red Blood Cell (RBC) Count 4.02 mill/uL (4.70-6.10); White Blood Cell (WBC) Count 9.1 10x3/uL (4.8-10.8)
[2022-07-25 06:58] LABS: Anion Gap 12 mmol/L (10-20); BUN (Urea Nitrogen) 9 mg/dL (8.9-20.6); Calc. Creatinine Clearance 157 mL/min (70-130); Calcium 8.7 mg/dL (7.8-10.44); Carbon Dioxide 26 mmol/L (22-29); Chloride 101 mmol/L (98-107); Estimated GFR 124; Glucose 203 mg/dL (70-105); Potassium 4.4 mmol/L (3.5-5.1); Sodium 135 mmol/L (136-145)
[2022-07-25] MEDS: Famotidine 20 MG TAB PO SCH (09:15)
[2022-07-25] MEDS: VANCOMYCIN 1.75 GM/500 ML BAG 1.75 GM in Premix Bag 1 BAG IVPB SCH (09:15)
[2022-07-25] MEDS: Enoxaparin Sodium 40 MG/0.4 ML SYRINGE SC SCH (09:16)
[2022-07-25] MEDS: Nicotine 14 MG PATCH TD SCH (15:09)
[2022-07-25 16:59] VITALS: BP 113/63; TEMP 98.3
== END 2022-07-25 17:15 | disposition home or self-care (01) | DRG 496 ==
LOC: ERS 11:43 → SURG B 13:48 → OBSVTOIN 13:48
PROVIDERS: ADMIT Student in an Organized Health Care Education/Training Program; ATTEND Internal Medicine
PROC: 0QPH04Z Removal of Internal Fixation Device from Left Tibia, Open Approach (ICD-10-PCS; principal; 2022-07-24)
PROC: 0YHJ0YZ Insertion of Other Device into Left Lower Leg, Open Approach (ICD-10-PCS; 2022-07-24)
PROC: 02HV33Z Insertion of Infusion Device into Superior Vena Cava, Percutaneous Approach (ICD-10-PCS; 2022-07-25)
PROC: B548ZZA Ultrasonography of Superior Vena Cava, Guidance (ICD-10-PCS; 2022-07-25)
DX: T84.623A Infection and inflammatory reaction due to internal fixation device of left tibia, initial encounter (principal); L03.116 Cellulitis of left lower limb; M86.162 Other acute osteomyelitis, left tibia and fibula; Z20.822 Contact with and (suspected) exposure to COVID-19; G89.29 Other chronic pain; Y83.8 Other surgical procedures as the cause of abnormal reaction of the patient, or of later complication, without mention of misadventure at the time of the procedure
CPT/HCPCS: 36415; 36569; 80048; 80053; 80202; 83605; 85025; 85652; 86140; 87040; 87070; 87077; 87186; 87205; 96365; 96375; 96376; 97139; C1713; C1751; J0171; J0692; J1100; J1170; J1885; J2001; J2270; J2370; J2405; J2704; J3010; J3370; J3370-JW; J3490; J7050; U0002

== ENCOUNTER 2022-08-20 16:39 | Emergency (ER) | payer SELFPAY ==
[2022-08-20] MEDS ORDERED: DAPTOmycin 600 MG in Sodium Chloride 0.9% 12 ML SLOW IVP SCH (19:15)
[2022-08-20] MEDS ORDERED: Sulfameth/Trimethoprim DS 800-160mg TAB ONE (19:34)
== END 2022-08-20 18:00 ==
LOC: ERS 16:39
DX: M86.662 Other chronic osteomyelitis, left tibia and fibula (principal); F17.210 Nicotine dependence, cigarettes, uncomplicated
CPT/HCPCS: 96365; 96375; J0878; J1642

== ENCOUNTER 2023-07-30 22:56 | Emergency (ER) | payer OTHER, SELFPAY ==
[2023-07-30] MEDS ORDERED: Morphine 4 MG/ML VIAL ONE (23:48)
[2023-07-30] MEDS ORDERED: Ketorolac Tromethamine 30 MG/ML VIAL ONE (23:49)
[2023-07-30] MEDS ORDERED: Ondansetron PF 4 MG/2 ML Vial ONE (23:49)
[2023-07-31 00:02] LABS: #Basophils 0.1 thou/uL (0.0-0.2); #Eosinphils 0.3 thou/uL (0.0-0.7); #Monocytes 0.7 thou/uL (0.11-0.59); #Neutrophils 2.4 thou/uL (1.40-6.50); %Eosinophils 5.8 % (0.0-10.0); %Lymphocytes 31.2 % (21.0-51.0); %Neutrophils 48.8 % (42.0-75.0); Hematocrit 42.8 % (42.0-52.0); Hemoglobin 14.5 g/dL (14.0-18.0); Mean Corpuscular HGB CONC 33.9 g/dL (32.0-36.0); Mean Corpuscular Hemoglobin 30.1 pg (27.0-31.0); Mean Platelet Volume 8.9 fL (7.4-10.4); Platelet Count 278 10x3/uL (130-400); Red Blood Cell (RBC) Count 4.81 mill/uL (4.70-6.10)
[2023-07-31 00:25] LABS: ALT (SGPT) 20 U/L (8-55); AST (SGOT) 29 U/L (5-34); Alkaline Phosphatase 125 U/L (40-110); Anion Gap 15 mmol/L (10-20); BUN (Urea Nitrogen) 16 mg/dL (8.9-20.6); Bilirubin, Total 0.2 mg/dL (0.2-1.2); Calc. Creatinine Clearance 0 mL/min (70-130); Calcium 9.5 mg/dL (7.8-10.44); Carbon Dioxide 27 mmol/L (22-29); Chloride 95 mmol/L (98-107); Estimated GFR 108; Globulin 3.9 g/dL (2.4-3.5); Glucose 96 mg/dL (70-105); Potassium 4.2 mmol/L (3.5-5.1); Protein, Total 7.9 g/dL (6.0-8.3); Sodium 133 mmol/L (136-145)
[2023-07-31] MEDS ORDERED: HYDROcodone/Acetaminophen 5/325 mg Tablet ONE (01:46)
== END 2023-07-31 01:22 | disposition home or self-care (01) ==
LOC: ERS 22:56
DX: M79.605 Pain in left leg (principal); F17.290 Nicotine dependence, other tobacco product, uncomplicated; F17.210 Nicotine dependence, cigarettes, uncomplicated
CPT/HCPCS: 36415; 80053; 83605; 85025; 87040; 96374; 96375; J1885; J2270; J2405